=== PATIENT | male | born 1945 | race Caucasian/White ===

== ENCOUNTER 2016-09-13 15:52 | Outpatient (CLI) | payer MEDICARE | END 2016-09-13 15:53 | disposition EMS.NT | LOC: EMS 15:52 | PROVIDERS: ATTEND Surgery | DX: Z04.1 Encounter for examination and observation following transport accident (principal); V89.0XXA Person injured in unspecified motor-vehicle accident, nontraffic, initial encounter; Y92.89 Other specified places as the place of occurrence of the external cause ==

== ENCOUNTER 2020-11-15 22:49 | Outpatient (CLI) | payer MEDICARE | END 2020-11-15 22:50 | disposition critical access hospital (66) | LOC: EMS 22:49 | DX: R53.1 Weakness (principal); R05 Cough; R11.0 Nausea | CPT/HCPCS: A0425; A0429 ==

== ENCOUNTER 2020-11-15 23:30 | Emergency (ER) | payer MEDICARE ==
--- NOTE | 2020-11-15 23:46 | ED Physician Documentation ---
History of Present Illness - Stated complaint Stated Complaint: COUGH/ WEAKNESS/ NAUSEA - Chief complaint Chief Complaint: Abd Pain - History obtained from History obtained from: Patient, EMS - History of Present Illness Pain level now: 3 Improved by: no ameliorating factors Worsened by: no exacerbating factors - Additonal information Additional information: BIBA. Patient c/o left low back pain, waxing and waning since approximately noon today. Onset was at home while at rest without specific inciting event. There are no exacerbating nor ameliorating factors. The pain has been associated with nausea and vomiting. He is febrile in ED but was not aware of having fevers at home. He says he had a similar left flank discomfort approximately 3 months ago and was seen at an urgent care center; he says a urinalysis revealed hematuria and this, combined with symptoms, resulted in suspicion of renal colic. He was advised to see his PMD to discuss further testing, specifically CT A/P. His symptoms had resolved and thus he did not pursue follow up. Patient is COVID vaccinated. Review of Systems Constitutional: reports: Fever (in ED (unaware of fevers at home)). denies: Myalgias Throat: denies: Sore throat Cardiac: reports: Reviewed and negative Respiratory: reports: Reviewed and negative GI: reports: Nausea, Vomiting. denies: Abdominal Pain, Constipation, Diarrhea : denies: Dysuria, Frequency, Hematuria Skin: denies: Rash Musculoskeletal: reports: Back pain (left lower back) Neurologic: reports: Reviewed and negative PD PAST MEDICAL HISTORY - Past Medical History Past Medical History: Yes Cardiovascular: Hypertension Endocrine/Autoimmune: Type 2 diabetes : Benign prostate hypertrophy - Past Surgical History Past Surgical History: Yes General: Cholecystectomy Ortho: Hip replacement - Present Medications Home Medications: Ambulatory Orders Medication Instructions Recorded Confirmed Finasteride [Proscar] 5 mg PO DAILY 11/15/20 11/15/20 Metformin HCl [Metformin ER 1,000 mg PO BID 11/15/20 11/15/20 Osmotic] Pioglitazone HCl [Actos] 30 mg PO DAILY 11/15/20 11/15/20 Pregabalin [Lyrica] 100 mg PO DAILY 11/15/20 11/15/20 Ramipril [Altace] 10 mg PO DAILY 11/15/20 11/15/20 - Allergies Allergies/Adverse Reactions: Allergies Allergy/AdvReac Type Severity Reaction Status Date / Time No Known Drug Allergies Allergy Verified 11/15/20 23:45 PD ED PE NORMAL - Vitals Vital signs reviewed: Yes - General General: Alert and oriented X 3, No acute distress, Well developed/nourished - HEENT HEENT: Moist mucous membranes - Neck Neck: Supple, no meningeal sign - Cardiac Cardiac: RRR, No murmur - Respiratory Respiratory: No respiratory distress, Clear bilaterally - Abdomen Abdomen: Soft, Non distended, Other (mild LLQ TTP without rebound or guarding) - Back Back: No CVA TTP - Derm Derm: Normal color, Warm and dry, No rash PD ED PE EXPANDED - Extremities Extremities: Pedal edema bilateral Results - Vitals Vitals: Oxygen O2 Source Room air - Labs Labs: Microbiology 11/16/20 00:40 Blood Culture - Preliminary Blood - Right Hand NO GROWTH AFTER 1 DAY 11/16/20 00:01 Blood Culture - Preliminary Blood NO GROWTH AFTER 1 DAY Laboratory Tests 11/16/20 11/16/20 11/16/20 00:01 00:01 00:01 WBC 12.7 H RBC 4.13 L Hgb 12.8 L Hct 39.6 L MCV 95.9 H MCH 31.0 MCHC 32.3 RDW 13.2 Plt Count 170 MPV 9.7 Neut # (Auto) 11.6 H Lymph # (Auto) 0.4 L Powell # (Auto) 0.6 Eos # (Auto) 0.0 Baso # (Auto) 0.0 Absolute Nucleated RBC 0.00 Nucleated RBC % 0.0 Sodium 136 Potassium 3.9 Chloride 102 Carbon Dioxide 23 Anion Gap 11.0 BUN 18 Creatinine 0.7 Estimated GFR (MDRD) 110 Glucose 129 H Lactic Acid 1.4 Calcium 9.0 Total Bilirubin 0.9 AST 16 ALT 17 Alkaline Phosphatase 56 Total Protein 7.1 Albumin 4.0 Globulin 3.1 Albumin/Globulin Ratio 1.3 Lipase 30 Urine Color Urine Clarity Urine pH Ur Specific [place] Urine Protein Urine Glucose (UA) Urine Ketones Urine Occult Blood Urine Nitrite Urine Bilirubin Urine Urobilinogen Ur Leukocyte Esterase Ur Microscopic Review Urine Culture Comments Nasal Adenovirus (PCR) Nasal B. parapertussis DNA (PCR) Nasal Coronavir 229E PCR Nasal Coronavir HKU1 PCR Nasal Coronavir NL63 PCR Nasal Coronavir OC43 PCR Nasal Enterovir/Rhinovir PCR Nasal Influenza B PCR Nasal Influenza A PCR Nasal Parainfluen 1 PCR Nasal Parainfluen 2 PCR Nasal Parainfluen 3 PCR Nasal Parainfluen 4 PCR Nasal RSV (PCR) Nasal B.pertussis DNA PCR Nasal C.pneumoniae (PCR) Hector Human Metapneumo PCR Nasal M.pneumoniae (PCR) Nasal SARS-CoV-2 (PCR) 11/16/20 11/16/20 00:06 02:42 WBC RBC Hgb Hct MCV MCH MCHC RDW Plt Count MPV Neut # (Auto) Lymph # (Auto) Powell # (Auto) Eos # (Auto) Baso # (Auto) Absolute Nucleated RBC Nucleated RBC % Sodium Potassium Chloride Carbon Dioxide Anion Gap BUN Creatinine Estimated GFR (MDRD) Glucose Lactic Acid Calcium Total Bilirubin AST ALT Alkaline Phosphatase Total Protein Albumin Globulin Albumin/Globulin Ratio Lipase Urine Color YELLOW Urine Clarity CLEAR Urine pH 5.0 Ur Specific [place] 1.015 Urine Protein NEGATIVE Urine Glucose (UA) NEGATIVE Urine Ketones 15 H Urine Occult Blood NEGATIVE Urine Nitrite NEGATIVE Urine Bilirubin NEGATIVE Urine Urobilinogen 0.2 (NORMAL) Ur Leukocyte Esterase NEGATIVE Ur Microscopic Review NOT INDICATED Urine Culture Comments NOT INDICATED Nasal Adenovirus (PCR) NOT DETECTED Nasal B. parapertussis DNA (PCR) NOT DETECTED Nasal Coronavir 229E PCR NOT DETECTED Nasal Coronavir HKU1 PCR NOT DETECTED Nasal Coronavir NL63 PCR NOT DETECTED Nasal Coronavir OC43 PCR NOT DETECTED Nasal Enterovir/Rhinovir PCR NOT DETECTED Nasal Influenza B PCR NOT DETECTED Nasal Influenza A PCR NOT DETECTED Nasal Parainfluen 1 PCR NOT DETECTED Nasal Parainfluen 2 PCR NOT DETECTED Nasal Parainfluen 3 PCR NOT DETECTED Nasal Parainfluen 4 PCR NOT DETECTED Nasal RSV (PCR) NOT DETECTED Nasal B.pertussis DNA PCR NOT DETECTED Nasal C.pneumoniae (PCR) NOT DETECTED Hector Human Metapneumo PCR NOT DETECTED Nasal M.pneumoniae (PCR) NOT DETECTED Nasal SARS-CoV-2 (PCR) NOT DETECTED - Rads (name of study) CT A/P Radiology: Prelim report reviewed, See rad report chest xray Radiology: Prelim report reviewed, See rad report PD MEDICAL DECISION MAKING - ED course Complexity details: reviewed results, re-evaluated patient, considered differential, d/w patient ED course: Test results are reassuring and nondiagnostic. Results include mild leukocytosis (12.7 WBC), normal lactate (1.4), normal LFTs, normal UA (except for 15 ketones), normal respiratory panel (includes negative for COVID). CT A/P also does not reveal nor suggest etiology of his pain and fever. On reevaluation, we discussed these results and the lack of diagnosis along with lack of concerning results. He is comfortable with d/c home and will return if worse, follow up with PMD next available appointment. Moderate pericardial effusion incidentally noted (on the low thoracic images obtained during CT A/P), and I also discussed this finding with him and again advised him to follow up for further study, such as echo, at the discretion of his primary care provider. Departure - Departure Disposition: Home, Self Care Clinical Impression: Flank pain, Fever, Pericardial effusion Condition: Good Instructions: ED Fever Unconf Cause, ED Flank Pain Uncertain Cause Comments: Tonight's tests do not show a cause of your symptoms (flank pain, fever). The results are reassuring, but further testing might be necessary. An incidental finding of pericardial effusion (fluid around the heart) is noted on the CT scan; you should follow up with your primary care provider for further testing regarding this finding. Please return to the emergency department if your symptoms worsen in any way. Discharge Date/Time: 11/16/20 03:50
[2020-11-16] MEDS ORDERED: ACETAMINOPHEN 325 MG TABLET PO STA (00:06)
[2020-11-16 00:17] LABS: BASOPHILS % (AUTO) 0.2 %; EOSINOPHILS % (AUTO) 0.1 %; HCT - HEMATOCRIT 39.6 % (42.0-52.0); HGB - HEMOGLOBIN 12.8 g/dL (14.0-18.0); LYMPHOCYTES # (AUTO) 0.4 10^3/uL (1.5-3.5); LYMPHOCYTES % (AUTO) 2.8 %; MEAN CORPUSCULAR HGB CONC 32.3 g/dL (32.0-36.0); MEAN CORPUSCULAR VOLUME 95.9 fL (80.0-94.0); MEAN PLATELET VOLUME 9.7 fL (7.4-11.4); MONOCYTES # (AUTO) 0.6 10^3/uL (0.0-1.0); NEUTROPHILS # (AUTO) 11.6 10^3/uL (1.5-6.6); NEUTROPHILS % (AUTO) 91.3 %; PLT - PLATELET COUNT 170 10^3/uL (130-450); RED BLOOD COUNT 4.13 10^6/uL (4.70-6.10); RED CELL DISTRIBUTION WIDTH 13.2 % (12.0-15.0); WHITE BLOOD COUNT 12.7 x10^3/uL (4.8-10.8)
--- NOTE | 2020-11-16 00:30 | XRAY Report ---
PROCEDURE: Chest 1 View X-Ray INDICATIONS: cough, fever TECHNIQUE: One view of the chest was acquired. COMPARISON: none FINDINGS: Surgical changes and devices: None. Lungs and pleura: No pleural effusions or pneumothorax. Lungs are clear. Mediastinum: Mediastinal contours appear normal. Heart size is enlarged. Bones and chest wall: No suspicious bony lesions. Overlying soft tissues appear unremarkable. IMPRESSION: No acute pulmonary process. Reviewed by: Georgina Garcia MD on 11/16/2020 12:28 AM PDT Approved by: Georgina Garcia MD on 11/16/2020 12:28 AM PDT Station ID: [id number]
[2020-11-16 00:33] LABS: ALBUMIN/GLOBULIN RATIO 1.3 (1.0-2.2); BILIRUBIN,TOTAL 0.9 mg/dL (0.2-1.0); CREATININE 0.7 mg/dL (0.6-1.2); POTASSIUM 3.9 mmol/L (3.5-5.0); TOTAL PROTEIN 7.1 g/dL (6.7-8.2)
[2020-11-16 01:08] LABS: B. PARAPERTUSSIS- RESP PCR PAN NOT DETECTED; B. PERTUSSIS- RESP PCR PANEL NOT DETECTED; C. PNEUMONIAE- RESP PCR PANEL NOT DETECTED; CORONAVIRUS 229E-RESP PCR NOT DETECTED; CORONAVIRUS HKU1-RESP PCR NOT DETECTED; CORONAVIRUS NL63-RESP PCR NOT DETECTED; CORONAVIRUS OC43-RESP PCR NOT DETECTED; HUMAN METAPNEUMOVIRUS NOT DETECTED; INFLUENZA A- RESP PCR PANEL NOT DETECTED; INFLUENZA B - RESP PCR PANEL NOT DETECTED; M. PNEUMONIAE- RESP PCR PANEL NOT DETECTED; PARAINFLUENZA VIRUS 1 NOT DETECTED; PARAINFLUENZA VIRUS 2 NOT DETECTED; PARAINFLUENZA VIRUS 3 NOT DETECTED; PARAINFLUENZA VIRUS 4 NOT DETECTED; RHINOVIRUS/ENTEROVIRUS NOT DETECTED; RSV- RESP PCR PANEL NOT DETECTED; SARS-CoV-2 -RESP PCR PANEL NOT DETECTED
[2020-11-16] MEDS ORDERED: IOPAMIDOL-300 50 ML VIAL ONE (01:27)
[2020-11-16] MEDS ORDERED: SODIUM CHLORIDE 0.9% 1,000 ML IV STA (02:00)
[2020-11-16] MEDS ORDERED: IOPAMIDOL-300 50 ML VIAL IVP ONE (02:06)
[2020-11-16 02:49] LABS: BILIRUBIN,URINE NEGATIVE (NEGATIVE); GLUCOSE, URINE (UA) NEGATIVE (NEGATIVE); KETONES,URINE (UA) 15 mg/dL (NEGATIVE); LEUKOCYTE ESTERASE, URINE NEGATIVE (NEGATIVE); NITRITE,URINE NEGATIVE (NEGATIVE); OCCULT BLOOD,URINE NEGATIVE (NEGATIVE); PROTEIN,URINE NEGATIVE (NEGATIVE); UROBILINOGEN,URINE 0.2 (NORMAL) E.U./dL (NORMAL)
[2020-11-16 02:52] LABS: CLARITY,URINE CLEAR (CLEAR)
[2020-11-16 04:18] VITALS: BP 105/56
--- NOTE | 2020-11-16 07:58 | CT Report ---
PROCEDURE: Abdomen/Pelvis W INDICATIONS: LLQ pain, fever CONTRAST: IV CONTRAST: Isovue 300 ml: 100 PO CONTRAST: *NO PO CONTRAST TECHNIQUE: After the administration of intravenous contrast, 5 mm thick sections acquired from the diaphragms to the symphysis. 5 mm thick coronal and sagittal reformats were acquired. For radiation dose reducti on, the following was used: automated exposure control, adjustment of mA and/or kV according to krish ent size. COMPARISON: None. FINDINGS: Image quality: Excellent. ABDOMEN: Lung bases: Lung bases are clear. Heart size is normal. Mild to moderate pericardial effusion. Sav nary artery calcifications. Solid organs: Liver and spleen are normal in size and enhancement. Gallbladder is surgically absent . Biliary system is non dilated. Pancreas enhances normally. 1.4 cm left adrenal nodule most likely represents a incidental adrenal adenoma. Kidneys demonstrate normal size and enhancement, without hy dronephrosis. Peritoneum and bowel: Bowel loops demonstrate normal wall thickness and caliber. No free fluid or a ir. Nodes and vessels: No retroperitoneal or mesenteric adenopathy by size criteria. Aorta and inferior vena cava are normal in size. Miscellaneous: No ventral hernias. PELVIS: Genitourinary: Bladder wall thickness is normal. Miscellaneous: Small bilateral inguinal hernias containing fat. Bones: No suspicious bony lesions. No vertebral body compression fractures. Total left hip arthropl asty. Advanced right hip arthritic change. Lumbar degenerative change. Posterior disc protrusion at L 4-L5. Question remote right hemilaminectomy at that level. IMPRESSION: 1. No evidence of acute abdominal process. 2. Mild to moderate pericardial effusion. 3. Coronary artery disease. 4. Advanced right hip degenerative arthritis. A preliminary report with the above findings was provided at the time of the study by [employer]. Reviewed by: Jaziel Velázquez MD on 11/16/2020 7:56 AM PDT Approved by: Jaziel Velázquez MD on 11/16/2020 7:56 AM PDT Station ID: [id number]
== END 2020-11-16 03:50 | disposition home or self-care (01) ==
LOC: EDUNIT# → SUPCPDRO 23:30 → ED 23:30
DX: I31.3 Pericardial effusion (noninflammatory) (principal); I10 Essential (primary) hypertension; E11.9 Type 2 diabetes mellitus without complications; Z79.84 Long term (current) use of oral hypoglycemic drugs; Z20.822 Contact with and (suspected) exposure to COVID-19
CPT/HCPCS: 36415; 71045; 74177; 80053; 81003; 83605; 83690; 85025; 87040; 87631; 96360; 99284; A9270; Q9967; 0202U; 81001; 87086